=== PATIENT | female | born 1975 ===

== ENCOUNTER 2016-08-23 16:35 | Emergency (ER) | payer MEDICAID ==
[2016-08-23 16:35] VITALS: BMI 37.2
[2016-08-23 17:00] VITALS: RESP 18; TEMP 98.1; O2SAT 97
--- NOTE | 2016-08-23 17:28 | ED PDOC ---
"Arrival/HPI - General Chief Complaint: Dizziness/Lightheaded Time Seen by Provider: 08/23/16 16:59 Historian: Patient - History of Present Illness Narrative History of Present Illness (Text): 08/23/16 17:07 This 41 yo female with pmh uncontrolled HTN, presents to this ED c/o dizziness, right facial and right fingers tingling x 4 hours. Patient stated she had stopped her blood pressure medication for almost 2 months due to side effects. Patient did take Lasix since her legs were retaining fluids. Patient saw her pmd 2 days ago, who recommended to take Diovan 320 mg tab with Lasix 80 mg cap in the morning, and Procardia, spironolactone at bedtime. Patient started taking these meds again 2 days ago. Patient denies diplopia, n/v, ortez, weakness , sob, cp, abdominal pain, cms, urinary symptoms, or recent travel. Dr. Cadet, PMD Time/Duration: 4-6 hours Context: Home Past Medical History - Provider Review Nursing Documentation Reviewed: Yes - Infectious Disease Hx of Infectious Diseases: None - Cardiac Hx Hypertension: Yes - Psychiatric Hx Substance Use: No - Surgical History Hx Section: Yes - Suicidal Assessment Feels Threatened In Home Enviroment: No Family/Social History - Physician Review Nursing Documentation Reviewed: Yes Family/Social History: No Known Family HX Smoking Status: Never Smoked Hx Alcohol Use: No Hx Substance Use: No Allergies/Home Meds Allergies/Adverse Reactions: Allergies No Known Allergies Allergy (Verified 08/23/16 16:47) Review of Systems - Review of Systems Constitutional: Normal. absent: Fatigue, Weight Change, Fevers Eyes: Normal. absent: Vision Changes, Photophobia, Eye Pain ENT: Normal. absent: Sore Throat, Rhinorrhea Respiratory: Normal. absent: SOB, Cough Cardiovascular: Normal. absent: Chest Pain, Palpitations, Calf Pain, Orthopnea , Syncope Gastrointestinal: Normal. absent: Abdominal Pain, Nausea, Vomiting Genitourinary Female: Normal. absent: Dysuria, Frequency, Hematuria, Vaginal Bleeding, Vaginal Discharge Musculoskeletal: Normal. absent: Back Pain Skin: Normal. absent: Rash Neurological: Dizziness, Other ((+) right facial tingling, and right fingers tingling). absent: Headache, Focal Weakness, Gait Changes, Speech Changes, Facial Droop, Disequilibrium, Seizure Endocrine: Normal Hemo/Lymphatic: Normal Psychiatric: Normal Physical Exam Vital Signs Temp Pulse Resp BP Pulse Ox 08/23/16 18:32 81 159/93 H 97 08/23/16 16:59 98.1 F 88 18 166/111 H 97 Temperature: Afebrile Blood Pressure: Normal Pulse: Regular Respiratory Rate: Normal Appearance: Positive for: Well-Appearing, Non-Toxic, Comfortable Pain Distress: None Mental Status: Positive for: Alert and Oriented X 3 Finger Stick Blood Glucose: 75 - Systems Exam Head: Present: Atraumatic, Normocephalic Pupils: Present: PERRL Extroacular Muscles: Present: EOMI Conjunctiva: Present: Normal Mouth: Present: Moist Mucous Membranes Pharnyx: Present: Normal. No: ERYTHEMA, EXUDATE, TONSILS ENLARGED Nose (External): Present: Atraumatic Nose (Internal): Present: Normal Inspection Neck: Present: Normal Range of Motion. No: Meningeal Signs Respiratory/Chest: Present: Clear to Auscultation, Good Air Exchange. No: Respiratory Distress, Accessory Muscle Use Cardiovascular: Present: Regular Rate and Rhythm, Normal S1, S2. No: Murmurs Abdomen: Present: Normal Bowel Sounds. No: Tenderness, Distention, Peritoneal Signs Back: Present: Normal Inspection. No: CVA Tenderness Upper Extremity: Present: Normal Inspection, Normal ROM, NORMAL PULSES, Neurovascularly Intact, Capillary Refill < 2s. No: Cyanosis, Edema Lower Extremity: Present: Normal Inspection, NORMAL PULSES, Normal ROM, Temperature Abnormalties, Neurovascularly Intact, Capillary Refill < 2 s. No: Edema, CALF TENDERNESS Neurological: Present: GCS=15, CN II-XII Intact, Speech Normal, Motor Func Grossly Intact, Normal Sensory Function, Normal Cerebellar Funct, Memory Normal Skin: Present: Warm, Dry, Normal Color. No: Rashes Psychiatric: Present: Alert, Oriented x 3 Medical Decision Making ED Course and Treatment: 08/23/16 21:06 Re-evaluation. Patient feels better. Discussed results and plan with patient who expresses understanding. All questions answered and there is agreement with the plan to discharge home with instructions. Patient stable for discharge. Return if symptoms persist or worsen Dizziness has improved. Patient has normal gait. No neuro focal deficits Re-evaluation Time: 21:05 Reassessment Condition: Re-examined, Improved - Lab Interpretations Lab Results: 08/23/16 18:14 08/23/16 18:14 Lab Results 08/23/16 18:32: Urine Color Light yellow, Urine Appearance Clear, Urine pH 7.0, Ur Specific [place] 1.010, Urine Protein Negative, Urine Glucose (UA) Negative, Urine Ketones Negative, Urine Blood Negative, Urine Nitrate Negative, Urine Bilirubin Negative, Urine Urobilinogen 0.2, Ur Leukocyte Esterase Negative, Urine HCG, Qual Negative 08/23/16 18:14: WBC 11.9 H, RBC 5.19, Hgb 12.7, Hct 38.8, MCV 74.8 L, MCH 24.5 L , MCHC 32.7, RDW 15.5 H, Plt Count 320, MPV 10.5, Gran % 79.5 H, Lymph % (Auto) 12.1 L, [place] % (Auto) 6.2 H, Eos % (Auto) 1.9, Baso % (Auto) 0.3, Gran # 9.43 H , Lymph # 1.4, [place] # 0.7 H, Eos # 0.2, Baso # 0.03, Sodium 138, Potassium 4.2, Chloride 100, Carbon Dioxide 30, Anion Gap 12, BUN 20, Creatinine 1.2, Est GFR ( Amer) > 60, Est GFR (Non-Af Amer) 50, Random Glucose 96, Calcium 9.3, Total Bilirubin 0.8, AST 27, ALT 37, Alkaline Phosphatase 84, Lactate Dehydrogenase 484, Total Creatine Kinase 76, Troponin I 0.02, Total Protein 8.2 , Albumin 4.2, Globulin 3.9, Albumin/Globulin Ratio 1.1 08/23/16 16:51: POC Glucose (mg/dL) 75 - RAD Interpretation Narrative RAD Interpretations (Text): 08/23/16 21:05 Patient Name: ISAAK FONTENOT FINDINGS: BRAIN: No significant acute abnormality identified. No acute hemorrhage seen within the brain. No acute extra-axial fluid collections visualized. No evidence of significant mass effect within the brain. Normal landis-white matter differentiation. VENTRICLES: No evidence of significant hydrocephalus. BONES/JOINTS: No acute fractures or other acute bony abnormality noted. SOFT TISSUES: No acute abnormality of the visualized soft tissues is seen. SINUSES: Mild opacification of the right ethmoid sinuses. Remaining visualized paranasal sinuses appear clear. MASTOID AIR CELLS: Mastoid air cells appear clear. IMPRESSION: - No acute findings seen within the brain. - See above for remaining findings. Thank you for allowing us to participate in the care of your patient. ISAAK FONTENOT | Final Radiology Report Dictated and Authenticated by: Lilibeth Tellez MD 08/23/2016 8:46 PM Eastern Time ([place] & [place]) Radiology Orders: 08/23/16 17:32 HEAD W/O CONTRAST [CT] Stat - Medication Orders Current Medication Orders: Discontinued Medications Home Med (*Refrigerator Open) Confirm Administered Dose 1 unit XX .STK-MED ONE Stop: 08/23/16 19:11 Meclizine HCl (Antivert) 25 mg PO STAT STA Stop: 08/23/16 17:33 Last Admin: 08/23/16 18:45 Dose: 25 MG Disposition/Present on Arrival - Present on Arrival Any Indicators Present on Arrival: No History of DVT/PE: No History of Uncontrolled Diabetes: No Urinary Catheter: No History of Decub. Ulcer: No History Surgical Site Infection Following: None - Disposition Have Diagnosis and Disposition been Completed?: Yes Diagnosis: Dizziness, Hypertension Disposition: HOME/ ROUTINE Disposition Time: 21:08 Patient Plan: Discharge Condition: GOOD Discharge Instructions (ExitCare): Vertigo (ED), Hypertension (ED) Additional Instructions: Call private docto for follow up visit and blood pressure recheck. take medication for dizziness as needed. Low salt diet. Return to emergency if symptoms worsen. Prescriptions: Meclizine [Meclizine*] 25 mg PO Q6 PRN #30 tab PRN Reason: Dizziness Referrals: Rosemarie Cadet DO [Primary Care Provider] - Follow up with primary"
[2016-08-23 18:19] LABS: ADD MANUAL DIFF? NO
[2016-08-23 18:37] LABS: ALB/GLOB RATIO 1.1 (1.1-1.8); ALKALINE PHOSPHATASE 84 U/L (38-133); ALT/SGPT 37 U/L (7-56); AST/SGOT 27 U/L (15-39); BILIRUBIN,TOTAL 0.8 mg/dL (0.2-1.3); BLOOD UREA NITROGEN 20 mg/dL (7-21); CALCIUM 9.3 mg/dL (8.4-10.5); CARBON DIOXIDE 30 mmol/L (21-33); CHLORIDE 100 mmol/L (98-107); GFR AFRICAN-AMERICAN > 60; GLUCOSE,RANDOM 96 mg/dL (70-110); POTASSIUM 4.2 mmol/L (3.6-5.0); SODIUM 138 mmol/L (132-148); TOTAL PROTEIN 8.2 g/dL (5.8-8.3)
[2016-08-23 18:38] LABS: BASO # 0.03 K/mm3 (0.0-2.0); BASO % 0.3 % (0.0-3.0); EOS # 0.2 (0.0-0.7); EOS % 1.9 % (1.5-5.0); GRAN # 9.43 (1.4-6.5); GRAN % 79.5 % (50.0-68.0); HEMATOCRIT 38.8 % (36.0-48.0); LYMPH # 1.4 (1.2-3.4); LYMPH % 12.1 % (22.0-35.0); MEAN CELL VOLUME 74.8 fL (80.0-105.0); MEAN CORPUSCULAR HEMOGLOBIN 24.5 pg (25.0-35.0); MEAN CORPUSCULAR HGB CONC 32.7 g/dl (31.0-37.0); MEAN PLATELET VOLUME 10.5 fl (7.0-11.0); MONO # 0.7 (0.1-0.6); MONO % 6.2 % (1.0-6.0); PLATELET COUNT 320 10^3/uL (120.0-450.0); RED CELL DISTRIBUTION WIDTH 15.5 % (11.5-14.5); WHITE BLOOD COUNT 11.9 10^3/ul (4.5-11.0)
[2016-08-23 18:48] LABS: TROPONIN I 0.02 ng/mL
[2016-08-23 18:52] LABS: URINE BILIRUBIN NEGATIVE (NEGATIVE); URINE GLUCOSE (UA) NEGATIVE (NEGATIVE)
[2016-08-23 18:53] LABS: URINE BLOOD NEGATIVE (NEGATIVE); URINE KETONE NEGATIVE (NEGATIVE); URINE LEUKOCYTE ESTERASE NEGATIVE Leu/uL (NEGATIVE); URINE PROTEIN NEGATIVE mg/dL (<30 mg/dL); URINE UROBILINOGEN 0.2 E.U./dL (<1 E.U./dL)
[2016-08-23 18:54] LABS: URINE APPEARANCE CLEAR (CLEAR); URINE COLOR LIGHT YELLOW (YELLOW)
[2016-08-23 19:17] VITALS: BP 159/93; PULSE 81
--- NOTE | 2016-08-23 20:47 | CT ---
EXAM: CT Head Without Intravenous Contrast CLINICAL HISTORY: 41 years old, female; Signs and symptoms; Dizziness TECHNIQUE: Axial computed tomography images of the head/brain without intravenous contrast. This CT exam was performed using one or more of the following dose reduction techniques: automated exposure control, adjustment of the mA and/or kV according to patient size, and/or use of iterative reconstruction technique. EXAM DATE/TIME: 08/23/2016 5:32 PM COMPARISON: No relevant prior studies available. FINDINGS: BRAIN: No significant acute abnormality identified. No acute hemorrhage seen within the brain. No acute extra-axial fluid collections visualized. No evidence of significant mass effect within the brain. Normal landis-white matter differentiation. VENTRICLES: No evidence of significant hydrocephalus. BONES/JOINTS: No acute fractures or other acute bony abnormality noted. SOFT TISSUES: No acute abnormality of the visualized soft tissues is seen. SINUSES: Mild opacification of the right ethmoid sinuses. Remaining visualized paranasal sinuses appear clear. MASTOID AIR CELLS: Mastoid air cells appear clear. IMPRESSION: - No acute findings seen within the brain. - See above for remaining findings.
--- NOTE | 2016-08-24 11:15 | CARD ---
APPROVED REPORT EKG Measurement Heart [id number] <Conclusion> RSR RAD NSSTW changes
== END 2016-08-23 21:29 | disposition home or self-care (01) ==
LOC: ED 16:35
DX: I10 Essential (primary) hypertension (principal); R42 Dizziness and giddiness